=== PATIENT | female | born 1965 | race Caucasian/White ===

== ENCOUNTER 2016-07-17 07:01 | Day surgery (SDC) | payer OTHER ==
[2016-07-16 11:52] VITALS: Ht 160 cm; Wt 60.0 kg
[~2016-07-17] VITALS: Ht 160 cm; Wt 60.0 kg
[2016-07-17] VITALS (9 sets, daily range): BP systolic 119–146; BP diastolic 64–88; PULSE 66–78; RESP 15–18
[~2016-07-17 07:01] MED LIST: HYDR-3498 PO
[2016-07-17] MEDS ORDERED: PROP10TA6 PO (08:27)
[2016-07-17] MEDS ORDERED: CHOL5000 PO (08:27)
[2016-07-17] MEDS ORDERED: NOL20 PO (08:27)
--- NOTE | 2016-07-17 08:36 | RADRPT ---
PROCEDURE: XR Chest. CLINICAL INDICATION: Preoperative TECHNIQUE: Single frontal view of the chest was obtained COMPARISON: 12/05/2015 FINDINGS: The heart and mediastinum are within normal limits. The lungs are clear. There is no pleural effusion or pneumothorax. RPTAT: AA IMPRESSION: No acute disease. .Iban Herrera MD, MD Date Time Electronically viewed and signed by .Iban Herrera MD, on 07/17/2016 08:36 .S/
[2016-07-17 09:12] LABS: BASOPHILS % 0.2 % (0.0-2.0); EOSINOPHILS # 0.1 10^3/ul (0.0-0.5); EOSINOPHILS % 2.4 % (0.0-7.0); HEMATOCRIT 37.7 % (37.0-47.0); HEMOGLOBIN 12.8 g/dl (12.0-16.0); LYMPHOCYTES # 0.5 10^3/ul (0.8-2.9); LYMPHOCYTES % 12.7 % (15.0-51.0); MEAN CORPUSCULAR VOLUME 88.2 fl (82.0-101.0); MONOCYTE # 0.4 10^3/ul (0.3-0.9); MONOCYTES % 9.4 % (0.0-11.0); NEUTROPHIL # 3.2 10^3/ul (1.6-7.5); NEUTROPHILS % 75.3 % (39.0-77.0); PLATELET COUNT 240 10^3/UL (140-440); RED BLOOD COUNT 4.28 10^6/ul (4.20-5.40); RED CELL DISTRIBUTION WIDTH 13.2 % (11.5-14.5); UNCORRECTED WBC 4.2 10^3/ul (4.8-10.8); WHITE BLOOD COUNT 4.2 10^3/ul (4.8-10.8)
[2016-07-17] MEDS ORDERED: LIDOCAINE 2% (SDV) 5 ML INJ ONE (09:13)
[2016-07-17] MEDS ORDERED: FENTAnyl 50 MCG/ML VIAL ONE (09:13)
[2016-07-17] MEDS ORDERED: MIDAZOLAM 1 MG/ML 2 ML INJ ONE (09:13)
[2016-07-17] MEDS ORDERED: PROPOFOL 20 ML ONE (09:13)
[2016-07-17] MEDS ORDERED: CEFAZOLIN 1 GM INJ ONE (09:14)
[2016-07-17] MEDS ORDERED: LIDOCAINE 1%/EPI 30 ML INJ ONE (09:14)
[2016-07-17] MEDS ORDERED: ONDANSETRON 4 MG INJ ONE (09:14)
[2016-07-17] MEDS ORDERED: METOCLOPRAMIDE 10 MG INJ ONE (09:14)
[2016-07-17 09:15] LABS: CONDITION 1
[2016-07-17 09:29] LABS: CALCIUM 9.4 mg/dl (8.4-10.2); CREATININE 0.65 mg/dl (0.44-1.00); POTASSIUM 4.2 mmol/L (3.5-5.1)
[2016-07-17] MEDS ORDERED: MEPERIDINE 25 MG INJ IV PRN (09:30)
[2016-07-17] MEDS ORDERED: PROCHLORPERAZINE 10 MG INJ IV PRN (09:30)
[2016-07-17] MEDS ORDERED: FENTAnyl 50 MCG/ML VIAL IV PRN (09:30)
[2016-07-17] MEDS ORDERED: OXYCODONE/ACETAMINOPHEN (5/325) TAB PO PRN (09:30)
[2016-07-17] MEDS ORDERED: METOCLOPRAMIDE 10 MG INJ IV PRN (09:30)
[2016-07-17] MEDS ORDERED: DIPHENHYDRAMINE 50 MG INJ IV PRN (09:30)
[2016-07-17] MEDS ORDERED: KETOROLAC 15 MG INJ IV ONE (09:30)
[2016-07-17] MEDS ORDERED: ONDANSETRON 4 MG INJ IV PRN (09:30)
[2016-07-17] MEDS ORDERED: LABETALOL HCL 20MG INJ IV PRN (09:30)
[2016-07-17 09:32] LABS: INR 0.93; PROTIME 12.5 Sec (12.2-14.2)
[2016-07-17 09:33] LABS: PARTIAL THROMBOPLASTIN TIME 25.1 Sec (25.0-35.0)
[2016-07-17] MEDS ORDERED: SOD CHLORIDE 0.9% 1,000 ML IV SCH (10:00)
[2016-07-17] MEDS ORDERED: CEFAZOLIN 1 GM/50 ML (PMX) 50 ML IVPB SCH (10:00)
--- NOTE | 2016-07-17 10:24 | OPR ---
DATE OF OPERATION: 07/17/2016 PREOPERATIVE DIAGNOSES: 1. Skin lesion, right cervical area. 2. Skin lesion, right abdomen. 3. Posterior thoracic mass. POSTOPERATIVE DIAGNOSES: 1. Skin lesion, right cervical area. 2. Skin lesion, right abdomen. 3. Posterior thoracic mass. PROCEDURE: 1. Excision of skin lesion, right neck. 2. Excision of skin lesion, right abdomen. 3. Excision of posterior thoracic mass, with local skin flap advancement closure. ANESTHESIA: IV sedation with local. ANESTHESIOLOGIST: Dr. Saldana SURGEON: Dominick Galvin MD CONFIGURATION MANAGEMENT MANAGER: Dr. Collazo INDICATIONS FOR PROCEDURE: The patient is known to me as I had previously treated her for breast c ancer. She presented with benign findings of a skin lesion on her right neck, right abdomen, and a cystic mass on her posterior thorax. She requested excision of all lesions. She consented and was scheduled for surgery. DESCRIPTION OF PROCEDURE: The patient was brought to the operating theater and placed under IV nayeli tion. The skin lesion on the right neck and right abdomen were both prepped and draped in the usual sterile fashion. Attention was first directed to the abdominal lesion. The area was infiltrated with 1% lidocaine lo kun anesthetic with epinephrine. An elliptical excision then took place with a 15 blade scalpel. T he specimen was transected with cautery, removed and sent for permanent pathologic analysis. Minima l bleeding was controlled with cautery and the skin was closed with 5-0 PDS suture in subcuticular f ashion. Attention was then directed to the right neck lesion. The area was infiltrated with 1% lidocaine lo kun anesthetic. It was elevated with a forceps and transected with the scalpel. Minimal bleeding at its base was controlled with cautery. The lesion was sent for permanent pathologic analysis. The patient was then repositioned into the lateral decubitus position, with the right side up. The area of the posterior thoracic cystic mass was prepped and draped in the usual sterile fashion. An elliptical incision took place with a 15 blade scalpel. The specimen was then dissected from the pichardo bcutaneous tissue with cautery. It was removed and sent for pathologic analysis. Due to the size o f the defect, primary closure was not possible; therefore superior and inferior flaps were created. The 2 flaps were rotated together and the skin was closed with 2-0 nylon sutures in vertical mattres s fashion. The patient tolerated the procedures well. Total blood loss was 10 mL. There were no c omplications and the patient was transported in stable condition to the recovery room. Dictated By: DOMINICK WISEMAN/SUSHANT Conf#: [id number] DID#: [id number]
--- NOTE | 2016-07-17 13:35 | RADRPT ---
Vent Rate: 71 bpm RR Interval: 0 msec ID Interval: 154 msec QRS Duration: 82 msec QT Interval: 406 msec QTC Interval: 441 msec P-R-T Sherrill: 67 - 72 - 71 degrees Normal sinus rhythm Low voltage QRS Borderline ECG Electronically Signed By: Lawrence Pena [id number]
== END 2016-07-17 11:30 | disposition home or self-care (01) ==
LOC: SDS 07:01
PROVIDERS: ATTEND Surgery Surgical Oncology
DX: D22.5 Melanocytic nevi of trunk (principal); D22.4 Melanocytic nevi of scalp and neck; L72.0 Epidermal cyst; I10 Essential (primary) hypertension; E78.5 Hyperlipidemia, unspecified
CPT/HCPCS: 11421; 14000; 71010; 80048; 84703; 85025; 85610; 85730; 88304; 88305; 93005; J0690; J2250; J2405; J2765; J3010; Z7512; Z7610

== ENCOUNTER 2017-01-17 20:18 | Emergency (ER) | payer OTHER ==
[~2017-01-17] VITALS: Ht 165.1 cm; Wt 70.5 kg
[~2017-01-17 20:18] MED LIST changes: +CHOL5000 PO; -HYDR-3498 PO; +NOL20 PO; +PROP10TA6 PO
[2017-01-17 20:26] VITALS: Ht 165.1 cm; Wt 70.5 kg
--- NOTE | 2017-01-17 21:05 | ERD ---
ER Documentation Chief Complaint Date/Time DATE: 01/17/17 TIME: 21:00 Chief Complaint cough, SOB x 1 week, no relief with Mucinex HPI 51-year-old female presents here in emergency department for complaints of cough on and off wheezing for one week, patient has been having dry cough, does not cough up any phlegm or blood. Patient has been having runny nose, nasal congestion clear nasal discharge. Patient does not have any fever or chills. Patient denies any chest pain. Patient has history of asthma from before. Patient was the former smoker, she has stopped years ago. ROS All systems reviewed and are negative except as per history of present illness. 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 CHEST: Clear to auscultation bilaterally. There are no rales, wheezes or rhonchi. HEART: Regular rate and rhythm. No murmurs, clicks, rubs or gallops. No S3 or S4. ABDOMEN: Soft, nontender and nondistended. Good bowel sounds. No rebound or guarding. No gross peritonitis. No gross organomegaly or masses. No Jarrett sign or McBurney point tenderness. BACK: No midline or flank tenderness. EXTREMITIES: Equal pulses bilaterally. There is no peripheral clubbing, cyanosis or edema. No focal swelling or erythema. Full range of motion. Grossly neurovascularly intact. NEURO: Alert and oriented. Cranial nerves 2-12 intact. Motor strength in all 4 extremities with 5/5 strength. Sensation grossly intact. Normal speech and gait. SKIN: There is no apparent rash or petechia. The skin is warm and dry. HEMATOLOGIC AND LYMPHATIC: There is no evidence of excessive bruising or lymphedema. No gross cervical, axillary, or inguinal lymphadenopathy. Results 24 hrs Current Medications Medications (Trade) Dose Ordered Sig/Jenna Route PRN Reason Start Time Stop Time Status Last Admin Dose Admin Guaifenesin/ Codeine Phosphate (Robitussin Ac Liquid Cup) 10 ml ONCE ONCE PO 01/17/17 21:30 01/17/17 21:31 DC 01/17/17 22:06 Cough medication as given here in emergency department, verbalized feeling much better afterwards. PROCEDURE: XR Chest. CLINICAL INDICATION: Cough for 1 week. TECHNIQUE: Single frontal view of the chest was obtained COMPARISON: Chest dated 07/17/2016. FINDINGS: The heart and mediastinum are within normal limits. The lungs are clear. There is no pleural effusion or pneumothorax. IMPRESSION: No acute disease. RPTAT: [facility] Physician Fozia Date Time Electronically viewed and signed by Physician Fozia on 01/17/2017 22:22 RS/ CC: CONI LOPEZ [employer] Procedures/MDM Medical Decision Making: Patient symptoms are most likely consistent with acute bronchitis, likely from atypical infection, also patient is high risk since patient is on tamoxifen, will start patient on antibiotic. There is low suspicion for Pneumonia at this time since patients lungs sounds are clear, patient O2 saturation is normal and patient doesnt show any respiratory distress. Patients chest xray doesnt show infiltrates or any other cardiopulmonary emergencies at this time. There is low suspicion for other cardiopulmonary emergencies at this time such as CHF, Pulmonary Embolism, Pneumothorax, Aortic Aneurysm or any other cardiopulmonary emergencies at this time. There is low suspicion for sepsis. Patient appears well and is hemodynamically stable. Fever is controlled with medicines. Disposition: Home. Condition: Stable Prescriptions: Guaifenesin with codeine, Zyrtec, azithromycin, albuterol Instructions: Patient is advised to take medications as prescribed. Patient is advised to rest. Patient advised to increase fluid intake, do humidifier at home and if possible, do salt water gargles. Patient is advised that if symptoms are worse, shortness of breath, uncontrolled fever, stridor, vomiting, worst signs and symptoms to return to emergency department immediately. Otherwise, patient is advised to follow up with primary doctor in 5-7 days. Departure Diagnosis: Primary Impression: Acute bronchitis Bronchitis organism: unspecified organism Qualified Code: J20.9 - Acute bronchitis, unspecified organism Condition: Stable Patient Instructions: Bronchitis With Wheezing (Adult) Additional Instructions: Patient is advised to take medications as prescribed. Patient is advised to rest. Patient advised to increase fluid intake, do humidifier at home and if possible, do salt water gargles. Patient is advised that if symptoms are worse, shortness of breath, uncontrolled fever, stridor, vomiting, worst signs and symptoms to return to emergency department immediately. Otherwise, patient is advised to follow up with primary doctor in 5-7 days. CONI LOPEZ NP Jan 17, 2017 21:05
[2017-01-17] MEDS ORDERED: GUAIFENESIN/CODEINE 5ML CUP PO ONE (21:30)
--- NOTE | 2017-01-17 22:22 | RADRPT ---
PROCEDURE: XR Chest. CLINICAL INDICATION: Cough for 1 week. TECHNIQUE: Single frontal view of the chest was obtained COMPARISON: Chest dated 07/17/2016. FINDINGS: The heart and mediastinum are within normal limits. The lungs are clear. There is no pleural effusion or pneumothorax. IMPRESSION: No acute disease. RPTAT: [facility] Physician Fozia Date Time Electronically viewed and signed by Mi Caraballo Physician on 01/17/2017 22:22 RS/
[2017-01-17] MEDS ORDERED: ALBU8.5H3 INH (22:28)
[2017-01-17] MEDS ORDERED: CETI10CA PO (22:28)
[2017-01-17] MEDS ORDERED: AZIT250T94 PO (22:28)
[2017-01-17] MEDS ORDERED: GUAI473L22 PO (22:28)
[2017-01-17 23:06] VITALS: PULSE 72; RESP 20; TEMP 98.5
== END 2017-01-17 23:08 | disposition home or self-care (01) ==
LOC: FTE 20:18
DX: J20.9 Acute bronchitis, unspecified (principal); Z85.3 Personal history of malignant neoplasm of breast; Z87.891 Personal history of nicotine dependence
CPT/HCPCS: 71010; Z7502; Z7610

== ENCOUNTER 2017-02-28 21:21 | Emergency (ER) | payer OTHER ==
[~2017-02-28] VITALS: Ht 160 cm; Wt 68.5 kg
[~2017-02-28 21:21] MED LIST changes: +ALBU8.5H3 INH; +AZIT250T94 PO; +CETI10CA PO; +GUAI473L22 PO
[2017-02-28 21:24] VITALS: Ht 160 cm; Wt 68.5 kg
[2017-02-28 21:57] LABS: URINE BLOOD (Dip) POC 1+ (NEGATIVE)
[2017-02-28] MEDS ORDERED: ONDANSETRON 4 MG INJ IV STA (22:27)
[2017-02-28] MEDS ORDERED: SOD CHLORIDE 0.9% 1,000 ML IV STA (22:27)
[2017-02-28] MEDS ORDERED: morphine 4 MG/ML VIAL IV STA (22:27)
[2017-02-28] MEDS ORDERED: ENALAPRILAT 1.25 MG INJ IV ONE (22:30)
[2017-02-28 23:24] LABS: BASOPHILS % 0.9 % (0.0-2.0); EOSINOPHILS # 0.1 10^3/ul (0.0-0.5); EOSINOPHILS % 1.9 % (0.0-7.0); HEMATOCRIT 37.8 % (37.0-47.0); HEMOGLOBIN 12.6 g/dl (12.0-16.0); LYMPHOCYTES # 1.3 10^3/ul (0.8-2.9); LYMPHOCYTES % 30.1 % (15.0-51.0); MEAN CORPUSCULAR HEMOGLOBIN 29.5 pg (29.0-33.0); MEAN CORPUSCULAR HGB CONC 33.3 g/dl (32.0-37.0); MEAN CORPUSCULAR VOLUME 88.5 fl (82.0-101.0); MEAN PLATELET VOLUME 9.3 fl (7.4-10.4); MONOCYTE # 0.3 10^3/ul (0.3-0.9); MONOCYTES % 7.5 % (0.0-11.0); NEUTROPHIL # 2.5 10^3/ul (1.6-7.5); NEUTROPHILS % 59.4 % (39.0-77.0); PLATELET COUNT 242 10^3/UL (140-415); RED BLOOD COUNT 4.27 10^6/ul (4.20-5.40); RED CELL DISTRIBUTION WIDTH 12.5 % (11.5-14.5); WHITE BLOOD COUNT 4.3 10^3/ul (4.8-10.8)
[2017-02-28 23:36] LABS: INR 0.96; PROTIME 12.8 Sec (12.2-14.2)
[2017-02-28 23:38] LABS: ADD UMIC YES; UR ASCORBIC ACID NEGATIVE (NEGATIVE); UR BILIRUBIN (Dip) NEGATIVE (NEGATIVE); UR BLOOD (Dip) 1+ mg/dL (NEGATIVE); UR CLARITY CLEAR (CLEAR); UR COLOR YELLOW (YELLOW); UR GLUCOSE (Dip) NEGATIVE (NEGATIVE); UR KETONES (Dip) NEGATIVE (NEGATIVE); UR LEUKOCYTE ESTERASE (Dip) NEGATIVE Leu/ul (NEGATIVE); UR NITRITE (Dip) NEGATIVE (NEGATIVE); UR RBC 1 /HPF (0-5); UR SPECIFIC GRAVITY (Dip) 1.012 (1.003-1.030); UR TOTAL PROTEIN (Dip) NEGATIVE (NEGATIVE); UR UROBILINOGEN (Dip) NEGATIVE (NEGATIVE)
[2017-02-28 23:44] LABS: ALBUMIN 3.9 g/dl (3.3-4.9); ALBUMIN/GLOBULIN RATIO 1.21; BILIRUBIN,INDIRECT 0.1 mg/dl (0-1.1); BILIRUBIN,TOTAL 0.1 mg/dl (0.2-1.3); CALCIUM 9.8 mg/dl (8.4-10.2); CREATININE 0.72 mg/dl (0.44-1.00); POTASSIUM 3.7 mmol/L (3.5-5.1); TOTAL PROTEIN 7.1 g/dl (6.1-8.1)
--- NOTE | 2017-03-01 00:28 | RADRPT ---
PROCEDURE: CT Abdomen and pelvis without contrast. CLINICAL INDICATION: Abdominal pain. TECHNIQUE: CT scan of the abdomen and pelvis was performed on a multi-detector high-resolution CT scanner. Contiguous axial images were obtained from the lung bases to the ischial tuberosities wit hout intravenous contrast. Coronal and sagittal reformatted images were also obtained. Images were reviewed on the PACS workstation. One or more of the following dose reduction techniques were used: - Automated exposure control. - Adjustment of the mA and/or kV according to patient size. - Use of iterative reconstruction technique. Exam CTD/vol = 10.19 mGy. Total exam DLP = 598.27 mGy-cm. COMPARISON: None. FINDINGS: Evaluation of the lung bases demonstrates minimal bibasilar atelectasis. There is skin thickening an d induration overlying bilateral breasts. Abdomen: The liver is normal in size. There is no focal mass or dilatation of the biliary tree. T he gallbladder is not distended. The spleen, pancreas and bilateral adrenal glands are within jessy l limits. Bilateral kidneys are normal in size with a cyst within the lower pole of the right kidne y. There is no radiopaque renal or ureteral calculus identified. There is no hydronephrosis or hyd roureter. There is no retroperitoneal adenopathy. The abdominal aorta is of normal caliber. There is moderate retained stool within the right and transverse colon. There is no bowel obstructi on or free air. A normal appendix is identified. There is no diverticulosis or diverticulitis. Th ere is no ascites. Pelvis: The bladder is unremarkable. The uterus and adnexa are within normal limits. There is no significant pelvic adenopathy or free fluid. Evaluation of the osseous structures demonstrates no suspicious lytic or blastic lesion. IMPRESSION: No acute abnormality identified within the abdomen and pelvis. Moderate retained stool within the colon. Right renal cyst. Skin thickening and induration overlying bilateral breasts. Clinically correlate. .Jacob Cota MD, MD Date Time Electronically viewed and signed by .Jacob Cota MD, MD on 03/01/2017 00:28 .T/
[2017-03-01] MEDS ORDERED: OXYC-279 PO (00:31)
--- NOTE | 2017-03-01 00:32 | ERD ---
ER Documentation Chief Complaint Date/Time DATE: 03/01/17 TIME: 00:32 Chief Complaint pelvic pain x 3 weeks ago on tamoxifen HPI 51-year-old woman complains of suprapubic abdominal pain intermittently 2-3 weeks. She states over this time period she has been diagnosed with urinary tract infection and she is on her second round of antibiotics. She states she also obtained gynecology consultation as an outpatient and is currently being managed by her compensation and benefits manager. She denies recent vaginal discharge, no weight loss, no fevers or chills, no vomiting or diarrhea. Patient denies back pain, chest pain, or shortness of breath. Patient denies vaginal erythema or itching. ROS All systems reviewed and are negative except as per history of present illness. Medications Home Meds Active Scripts Oxycodone HCl/Acetaminophen (Percocet 5-325 mg Tablet) 1 Each Tablet, 1 EACH PO TID for PAIN, #12 TAB Prov:ALLY WAGNER MD 03/01/17 Azithromycin* (Zithromax*) 250 Mg Tablet, 250 MG PO .NicolePACK DIRECTED, #6 TAB TAKE 500 MG (2 TABS) THE FIRST DAY THEN 250 MG (1 TAB) DAYS 2-5 Prov:CONI LOPEZ NP 01/17/17 Albuterol Sulfate* (Proair HFA*) 8.5 Gm Hfa.aer.ad, 2 PUFF INH Q4H Y for WHEEZING AND SOB, #1 INHALER Prov:CONI LOPEZ NP 01/17/17 Cetirizine Hcl* (Zyrtec*) 10 Mg Capsule, 10 MG PO DAILY, #30 TAB.CHEW Prov:CONI LOPEZ NP 01/17/17 Guaifenesin-Codeine Phosphate* (Guaifenesin* AC Cough Syrup) 473 Ml Liquid, 10 ML PO Q4H Y for COUGH, #60 ML Prov:CONI LOPEZ NP 01/17/17 Reported Medications Cholecalciferol (D3-5) 5,000 Unit Capsule, 40192 UNIT PO, CAP 07/17/16 Propranolol Hcl* (Propranolol Hcl*) 10 Mg Tablet, 10 MG PO TID, TAB 07/17/16 Tamoxifen Citrate* (Tamoxifen Citrate*) 20 Mg Tab, 20 MG PO DAILY, TAB 07/17/16 Allergies Allergies: Coded Allergies: No Known Allergy (Unverified , 07/17/16) PMhx/Soc History of bilateral breast carcinoma status post radiation therapy and current tamoxifen use, recent urinary tract infection treated with antibiotics, hypertension History of Surgery: Yes (lymph node disection) Anesthesia Reaction: No Hx Neurological Disorder: No Hx Respiratory Disorders: Yes Hx Cardiac Disorders: Yes Hx Psychiatric Problems: No Hx 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) Hx Alcohol Use: No Hx Substance Use: No Hx Tobacco Use: Yes (quit 5 months ago) Smoking Status: Never smoker FmHx Family History: No diabetes Physical Exam Vitals Vital Signs Date Time Temp Pulse Resp B/P Pulse Ox O2 Delivery O2 Flow Rate FiO2 03/01/17 00:43 74 122/74 02/28/17 23:05 164/74 02/28/17 21:57 173/118 02/28/17 21:24 97.4 97 20 222/139 98 Physical Exam GENERAL: Well-developed, well-nourished, well-hydrated, in no apparent distress , looks nontoxic in appearance HEENT: Moist mucous membranes, pink conjunctiva, no cervical spine tenderness or step-off deformities, no goiter, no jaundice or icterus, extraocular movements intact without pain. No submandibular induration, and no pharyngeal erythema NEURO: Alert and oriented 3, cranial nerves II through XII intact bilaterally, pupils equal round reactive to light, no focal deficits or facial asymmetry, sensation intact distally Strength 5/5 in upper and lower extremities bilaterally CARDIAC: Regular rate and rhythm, no murmurs rubs or gallops LUNGS: Clear bilaterally no wheezing crackles or stridor ABDOMEN: Soft nontender, no guarding, no rigidity, no rebound, no psoas sign no obturator sign. Normoactive bowel sounds SKIN: Warm and dry to touch, no abrasions, contusions, or hematomas, no lacerations, no ecchymosis, no target lesions, and without ulcers EXTREMITIES: No clubbing cyanosis or edema, calves are bilaterally symmetrical, no Homans sign, no popliteal cord sign. Distal pulses equal and bilateral PSYCH: Normal affect without agitation or irritability Result Diagram: 02/28/17 2302 02/28/17 2302 Results 24 hrs Laboratory Tests Test 02/28/17 21:50 02/28/17 22:05 02/28/17 23:02 Urine Color YELLOW Urine Clarity CLEAR Urine pH 5.0 Urine Specific [place] 1.012 Urine Ketones NEGATIVEmg/dL Urine Nitrite NEGATIVEmg/dL Urine Bilirubin NEGATIVEmg/dL Urine Urobilinogen NEGATIVEmg/dL Urine Leukocyte Esterase NEGATIVELeu/ul Urine Microscopic RBC 1/HPF Urine Microscopic WBC 0/HPF Urine Hemoglobin 1+mg/dL Urine Glucose NEGATIVEmg/dL Urine Total Protein NEGATIVEmg/dl Bedside Urine pH (LAB) 5.5 Bedside Urine Protein (LAB) Negative Bedside Urine Glucose (UA) Negative Bedside Urine Ketones (LAB) Negative Bedside Urine Blood 1+ Bedside Urine Nitrite (LAB) Negative Bedside Urine Leukocyte Esterase (L Negative White Blood Count 4.310^3/ul Red Blood Count 4.2710^6/ul Hemoglobin 12.6g/dl Hematocrit 37.8% Mean Corpuscular Volume 88.5fl Mean Corpuscular Hemoglobin 29.5pg Mean Corpuscular Hemoglobin Concent 33.3g/dl Red Cell Distribution Width 12.5% Platelet Count 83286^3/UL Mean Platelet Volume 9.3fl Neutrophils % 59.4% Lymphocytes % 30.1% Monocytes % 7.5% Eosinophils % 1.9% Basophils % 0.9% Nucleated Red Blood Cells % 0.0/100WBC Neutrophils # 2.510^3/ul Lymphocytes # 1.310^3/ul Monocytes # 0.310^3/ul Eosinophils # 0.110^3/ul Basophils # 0.010^3/ul Nucleated Red Blood Cells # 0.010^3/ul Prothrombin Time 12.8Sec Prothrombin Time Ratio 1.0 INR International Normalized Ratio 0.96 Sodium Level 138mmol/L Potassium Level 3.7mmol/L Chloride Level 105mmol/L Carbon Dioxide Level 26mmol/L Anion Gap 11 Blood Urea Nitrogen 14mg/dl Creatinine 0.72mg/dl Glucose Level 96mg/dl Calcium Level 9.8mg/dl Total Bilirubin 0.1mg/dl Direct Bilirubin 0.00mg/dl Indirect Bilirubin 0.1mg/dl Aspartate Amino Transf (AST/SGOT) 30IU/L Alanine Aminotransferase (ALT/SGPT) 31IU/L Alkaline Phosphatase 79IU/L Total Protein 7.1g/dl Albumin 3.9g/dl Globulin 3.20g/dl Albumin/Globulin Ratio 1.21 Lipase 637U/L Current Medications Medications (Trade) Dose Ordered Sig/Jenna Route PRN Reason Start Time Stop Time Status Last Admin Dose Admin Sodium Chloride (NS) 1,000 ml @ 1,000 mls/hr Q1H STAT IV 02/28/17 22:27 02/28/17 23:26 DC 02/28/17 22:55 Morphine Sulfate (morphine) 4 mg ONCE STAT IV 02/28/17 22:27 02/28/17 22:29 DC 02/28/17 22:55 Ondansetron HCl (Zofran Inj) 4 mg ONCE STAT IV 02/28/17 22:27 02/28/17 22:29 DC 02/28/17 22:55 Enalaprilat (Vasotec Iv) 1.25 mg ONCE ONCE IV 02/28/17 22:30 02/28/17 22:31 DC 02/28/17 22:55 Procedures/MDM IV line was established patient was placed on school lunch monitor rhythm strip revealed a sinus rhythm at about 80 bpm with upright P and T waves. Patient was afebrile. Patient was initially hypertensive and received enalapril 1.25 mg IV 1, she also received 1 L normal saline intravenously, morphine 4 mg IV, Zofran 4 mg IV with resolution of pain. CT scan of the abdomen and pelvis was performed that was unremarkable. Please refer to radiologist dictation for full report. CBC and electrolytes are normal, liver function tests were normal, urine analysis was negative for infection. I informed the patient to continue her antibiotics until her regimen is complete. Differential diagnoses considered, included but not limited to new carcinoma, tubo-ovarian abscess, pelvic inflammatory disease, aortic dissection, abdominal aortic aneurysm, sepsis, stroke, meningitis, encephalitis, pneumonia, appendicitis, cholecystitis, bowel obstruction, pyelonephritis, nephrolithiasis , cystitis, as well as metabolic, hematologic, and electrolyte abnormalities. As well as abscess, cellulitis, fractures, and dislocations. Patient feels much better at this time, and vital signs are normal, symptoms have improved. I did give strict instructions to return to the ED if symptoms continue or worsen, patient will otherwise follow-up with primary care physician. Patient understood instructions and agreed to plan. Disclaimer: Inadvertent spelling and grammatical errors are likely due to EHR/ dictation software use and do not reflect on the overall quality of patient care. Also, please note that the electronic time recorded on this note does not necessarily reflect the actual time of the patient encounter. Departure Diagnosis: Primary Impression: Hypertension Hypertension type: essential hypertension Qualified Code: I10 - Essential hypertension Additional Impressions: UTI (urinary tract infection) Urinary tract infection type: acute cystitis Hematuria presence: without hematuria Qualified Code: N30.00 - Acute cystitis without hematuria Pelvic pain Condition: Good Patient Instructions: High Blood Pressure (Hypertension) Referrals: [facility] (PCP) ALLY WAGNER MD Mar 01, 2017 00:32
[2017-03-01 00:43] VITALS: BP 122/74; PULSE 74
== END 2017-03-01 00:58 | disposition home or self-care (01) ==
LOC: E/R 21:21
DX: I10 Essential (primary) hypertension (principal); N30.00 Acute cystitis without hematuria; Z85.3 Personal history of malignant neoplasm of breast; Z87.891 Personal history of nicotine dependence
CPT/HCPCS: 36415; 74176; 80053; 81001; 83690; 85025; 85610; 87086; 96374; 96375; J2270; J2405; J7030; Z7502; Z7610; 81003

== ENCOUNTER 2017-03-19 10:16 | Emergency (ER) | payer OTHER ==
[~2017-03-19] VITALS: Ht 157.5 cm; Wt 68.0 kg
[~2017-03-19 10:16] MED LIST changes: +OXYC-279 PO
[2017-03-19 10:20] VITALS: Ht 157.5 cm; Wt 68.0 kg
[2017-03-19] MEDS ORDERED: ONDANSETRON 4 MG INJ IV STA (10:47)
[2017-03-19] MEDS ORDERED: morphine 4 MG/ML VIAL IV STA (10:47)
[2017-03-19] MEDS ORDERED: LABETALOL HCL 20MG INJ IV ONE (11:00)
--- NOTE | 2017-03-19 11:31 | RADRPT ---
PROCEDURE: XR Chest. CLINICAL INDICATION: Abdominal pain. TECHNIQUE: Single frontal view. COMPARISON: 01/17/2017. FINDINGS: The lungs are clear. The heart size is normal. There is no pleural effusion. There is no pneumothorax. IMPRESSION: 1. Normal chest radiograph. 2. No change from 01/17/2017. RPTAT: QQ .Wali King MD, MD Date Time Electronically viewed and signed by .Wali King MD, MD on 03/19/2017 11:31 .R/
[2017-03-19] MEDS ORDERED: PROP20TA4 PO (11:50)
[2017-03-19] MEDS ORDERED: CLON-379 PO (11:52)
[2017-03-19] MEDS ORDERED: AMLO1CAP10 PO (11:53)
[2017-03-19] MEDS ORDERED: CALC600T24 PO (11:54)
[2017-03-19] MEDS ORDERED: ERGO500037 PO (11:54)
[2017-03-19 13:26] LABS: BASOPHILS % 0.5 % (0.0-2.0); EOSINOPHILS % 0.9 % (0.0-7.0); HEMATOCRIT 40.3 % (37.0-47.0); HEMOGLOBIN 13.2 g/dl (12.0-16.0); LYMPHOCYTES # 0.7 10^3/ul (0.8-2.9); LYMPHOCYTES % 16.1 % (15.0-51.0); MEAN CORPUSCULAR HEMOGLOBIN 29.4 pg (29.0-33.0); MEAN CORPUSCULAR HGB CONC 32.8 g/dl (32.0-37.0); MEAN CORPUSCULAR VOLUME 89.8 fl (82.0-101.0); MEAN PLATELET VOLUME 9.6 fl (7.4-10.4); MONOCYTE # 0.2 10^3/ul (0.3-0.9); MONOCYTES % 5.7 % (0.0-11.0); NEUTROPHIL # 3.2 10^3/ul (1.6-7.5); NEUTROPHILS % 76.6 % (39.0-77.0); PLATELET COUNT 212 10^3/UL (140-415); RED BLOOD COUNT 4.49 10^6/ul (4.20-5.40); RED CELL DISTRIBUTION WIDTH 12.3 % (11.5-14.5); WHITE BLOOD COUNT 4.2 10^3/ul (4.8-10.8)
[2017-03-19 13:33] LABS: ALANINE AMINOTRANSFERASE 28 IU/L (13-69); ALBUMIN/GLOBULIN RATIO 1.21; ALKALINE PHOSPHATASE 77 IU/L (42-121); ANION GAP 12 (8-16); ASPARTATE AMINO TRANSFERASE 28 IU/L (15-46); BILIRUBIN,INDIRECT 0.3 mg/dl (0-1.1); BILIRUBIN,TOTAL 0.3 mg/dl (0.2-1.3); BLOOD UREA NITROGEN 11 mg/dl (7-20); CALCIUM 9.7 mg/dl (8.4-10.2); CARBON DIOXIDE 26 mmol/L (21-31); CHLORIDE 107 mmol/L (97-110); CREATININE 0.65 mg/dl (0.44-1.00); GLUCOSE 100 mg/dl (70-220); POTASSIUM 3.9 mmol/L (3.5-5.1); SODIUM 141 mmol/L (135-144); TOTAL PROTEIN 7.3 g/dl (6.1-8.1)
[2017-03-19 13:38] LABS: INR 0.93; PROTIME 12.5 Sec (12.2-14.2)
[2017-03-19 13:39] LABS: PARTIAL THROMBOPLASTIN TIME 24.4 Sec (25.0-35.0)
[2017-03-19 13:49] LABS: TROPONIN-I < 0.012 ng/ml (0.00-0.12)
--- NOTE | 2017-03-19 13:59 | ERD ---
ER Documentation Chief Complaint Chief Complaint Sent from MD for eval abdominal pain HPI Patient is a 51-year-old female with hypertension and breast cancer presents with high blood pressure. She also had abdominal pain 2 weeks ago. She found that that she had high blood pressure recently and has been on blood pressure medicines for the past 2.5 weeks. She went to Dr. Wright from cardiology who gave her propranolol, clonidine, amlodipine, and benazepril. This morning she felt dizzy and had pain between her shoulder blades. She does not currently have a primary doctor just Dr. Wright. ROS All systems reviewed and are negative except as per history of present illness. Medications Home Meds Reported Medications Calcium Carbonate* (Calcium Carbonate*) 600 MG Ca Tab, 1200 MG PO DAILY, TAB 03/19/17 Ergocalciferol (Vitamin D2) (VITAMIN D2) 50,000 Unit Capsule, 43447 UNIT PO EVERY WEDNESDAY, CAP 03/19/17 Amlodipine Besylate/Benazepril (Amlodipine-Benazepril 5-20 mg) 1 Each Capsule, 1 EACH PO DAILY, CAP 03/19/17 Clonidine Hcl* (Clonidine Hcl*) 0.1 Mg Tab, 0.1 MG PO DAILY Y for ELEVATED BLOOD PRESSURE, TAB 03/19/17 Propranolol Hcl* (Propranolol Hcl*) 20 Mg Tablet, 20 MG PO BID, TAB 03/19/17 Tamoxifen Citrate* (Tamoxifen Citrate*) 20 Mg Tab, 20 MG PO DAILY, TAB 07/17/16 Discontinued Reported Medications Cholecalciferol (D3-5) 5,000 Unit Capsule, 98953 UNIT PO, CAP 07/17/16 Propranolol Hcl* (Propranolol Hcl*) 10 Mg Tablet, 10 MG PO TID, TAB 07/17/16 Discontinued Scripts Oxycodone HCl/Acetaminophen (Percocet 5-325 mg Tablet) 1 Each Tablet, 1 EACH PO TID for PAIN, #12 TAB Prov:ALLY WAGNER MD 03/01/17 Azithromycin* (Zithromax*) 250 Mg Tablet, 250 MG PO .LUISANA DIRECTED, #6 TAB TAKE 500 MG (2 TABS) THE FIRST DAY THEN 250 MG (1 TAB) DAYS 2-5 Prov:CONI LOPEZ NP 01/17/17 Albuterol Sulfate* (Proair HFA*) 8.5 Gm Hfa.aer.ad, 2 PUFF INH Q4H Y for WHEEZING AND SOB, #1 INHALER Prov:CONI LOPEZ NP 01/17/17 Cetirizine Hcl* (Zyrtec*) 10 Mg Capsule, 10 MG PO DAILY, #30 TAB.CHEW Prov:CONI LOPEZ NP 01/17/17 Guaifenesin-Codeine Phosphate* (Guaifenesin* AC Cough Syrup) 473 Ml Liquid, 10 ML PO Q4H Y for COUGH, #60 ML Prov:CONI LOPEZ NP 01/17/17 Allergies Allergies: Coded Allergies: No Known Allergy (Unverified , 03/19/17) PMhx/Soc History of Surgery: Yes (BILATERAL BREAST) Anesthesia Reaction: No Hx Neurological Disorder: No Hx Respiratory Disorders: No Hx Cardiac Disorders: Yes (HTN, ARRYTHMIAS) Hx Psychiatric Problems: No Hx Miscellaneous Medical Probl: Yes (BILATERAL BREAST CA) Hx Alcohol Use: No Hx Substance Use: No Hx Tobacco Use: Yes (QUIT 18 MONTHS AGO) Smoking Status: Former smoker FmHx Family History: diabetes Physical Exam Vitals Vital Signs Date Time Temp Pulse Resp B/P Pulse Ox O2 Delivery O2 Flow Rate FiO2 03/19/17 12:45 97.7 68 12 142/93 100 Room Air 03/19/17 11:00 105 220/123 03/19/17 10:20 97.7 75 20 217/122 100 Physical Exam Const: No acute distress Head: Atraumatic Eyes: Normal Conjunctiva ENT: Normal External Ears, Nose and Mouth. Neck: Full range of motion..~ No meningismus. Resp: Clear to auscultation bilaterally Cardio: Regular rate and rhythm, no murmurs Abd: Soft, non tender, non distended. Normal bowel sounds Skin: No petechiae or rashes Back: No midline or flank tenderness Ext: No cyanosis, or edema Neur: Awake and alert Psych: Normal Mood and Affect Result Diagram: 03/19/17 1305 03/19/17 1305 Results 24 hrs Laboratory Tests Test 03/19/17 13:05 White Blood Count 4.210^3/ul Red Blood Count 4.4910^6/ul Hemoglobin 13.2g/dl Hematocrit 40.3% Mean Corpuscular Volume 89.8fl Mean Corpuscular Hemoglobin 29.4pg Mean Corpuscular Hemoglobin Concent 32.8g/dl Red Cell Distribution Width 12.3% Platelet Count 87686^3/UL Mean Platelet Volume 9.6fl Neutrophils % 76.6% Lymphocytes % 16.1% Monocytes % 5.7% Eosinophils % 0.9% Basophils % 0.5% Nucleated Red Blood Cells % 0.0/100WBC Neutrophils # 3.210^3/ul Lymphocytes # 0.710^3/ul Monocytes # 0.210^3/ul Eosinophils # 0.010^3/ul Basophils # 0.010^3/ul Nucleated Red Blood Cells # 0.010^3/ul Prothrombin Time 12.5Sec Prothrombin Time Ratio 1.0 INR International Normalized Ratio 0.93 Activated Partial Thromboplast Time 24.4Sec Sodium Level 141mmol/L Potassium Level 3.9mmol/L Chloride Level 107mmol/L Carbon Dioxide Level 26mmol/L Anion Gap 12 Blood Urea Nitrogen 11mg/dl Creatinine 0.65mg/dl Glucose Level 100mg/dl Calcium Level 9.7mg/dl Total Bilirubin 0.3mg/dl Direct Bilirubin 0.00mg/dl Indirect Bilirubin 0.3mg/dl Aspartate Amino Transf (AST/SGOT) 28IU/L Alanine Aminotransferase (ALT/SGPT) 28IU/L Alkaline Phosphatase 77IU/L Troponin I < 0.012ng/ml Total Protein 7.3g/dl Albumin 4.0g/dl Globulin 3.30g/dl Albumin/Globulin Ratio 1.21 Lipase 90U/L Current Medications Medications (Trade) Dose Ordered Sig/Jenna Route PRN Reason Start Time Stop Time Status Last Admin Dose Admin Morphine Sulfate (morphine) 4 mg ONCE STAT IV 03/19/17 10:47 03/19/17 10:48 DC Ondansetron HCl (Zofran Inj) 4 mg ONCE STAT IV 03/19/17 10:47 03/19/17 10:48 DC Labetalol HCl (Labetalol) 20 mg ONCE ONCE IV 03/19/17 11:00 03/19/17 11:01 DC 03/19/17 11:30 Procedures/MDM Ultrasound of the renal arteries shows no renal artery stenosis per radiology. Chest x-ray is negative per radiology. EKG read by me: Rate/Rhythm: Regular rate and rhythm at a rate of 70 Intervals: Normal Impression: No evidence of ischemia or arrhythmia Patient is a 51-year-old female with hypertension who presents with hypertension. She was given labetalol IV which has improved her blood pressure. The patient has normal laboratory studies. Chest x-ray is negative and EKG shows no signs of ischemia. Her renal artery ultrasound shows no signs of renal artery stenosis. At this point I believe outpatient management is appropriate. She will need to continue to take her blood pressure medicines as directed but will need to follow-up with her doctor for repeat evaluation and blood pressure check to see if her blood pressure medications need to be changed or increased. She can return for any worsening symptoms. I do not believe she requires admission the hospital at this time. I doubt hypertensive emergency. I doubt acute coronary syndrome or renal artery stenosis. I doubt stroke. Critical Care: Time: 35 minutes excluding all billable procedures. Treatments/Evaluations: Close monitoring and treatment of unstable vital signs, cardiorespiratory, and neurologic status, while maintaining tight balance of fluid, respiratory, and cardiac interventions. Departure Diagnosis: Primary Impression: Hypertension Hypertension type: essential hypertension Qualified Code: I10 - Essential hypertension Condition: Fair Patient Instructions: High Blood Pressure (Hypertension) Referrals: [facility] (PCP) GRECIA WRIGHT MD Additional Instructions: Call your primary care doctor TOMORROW for an appointment during the next 1-2 days.See the doctor sooner or return here if your condition worsens before your appointment time. MARIS GILLIAM MD Mar 19, 2017 13:59
[2017-03-19 14:03] VITALS: BP 113/68; PULSE 67; RESP 22; TEMP 97.7
--- NOTE | 2017-03-19 18:15 | RADRPT ---
PROCEDURE: US Renal arteries. CLINICAL INDICATION: Hypertension. TECHNIQUE: Renal artery Doppler ultrasound was performed with cameron scale, color flow, and Doppler interrogation of the renal arteries and kidneys. COMPARISON: None available FINDINGS: The right kidney measures 10.8 cm. The left kidney measures 9.9 cm. There is no solid renal mass, hy dronephrosis, or calculus. There is a benign cyst in the lower right kidney measuring 2.6 x 3.5 x 3. 3 cm. Renal echogenicity is normal. LOCATIONRIGHT (cm/sec)LEFT (cm/sec) Aorta PSV68 Prox main renal artery [id number] 41 Resistive Index0.74 0.55 Mid main renal artery PSV73 71 Resistive Index0.61 0.63 Dist main renal artery [id number] 69 Resistive Index0.64 0.63 Renal veinpatent patent Superior segmental artery PSV37 62 Resistive Index0.64 0.62 Mid segmental artery PSV55 54 Resistive Index0.72 0.59 Lower segmental artery PSV50 39 Resistive Index0.68 0.62 Renal Artery-Aorta Ratio1.5 1.0 IMPRESSION: 1. Unremarkable renal artery Doppler ultrasound. 2. No evidence for renal artery stenosis. 3. Benign cyst in the lower right kidney measuring 3.5 cm in maximal dimension. RPTAT: QQ .Wali King MD, Date Time Electronically viewed and signed by .Wali King MD, MD on 03/19/2017 18:15 .R/
== END 2017-03-19 14:12 | disposition home or self-care (01) ==
LOC: E/R 10:16
DX: I10 Essential (primary) hypertension (principal); R07.9 Chest pain, unspecified; Z85.3 Personal history of malignant neoplasm of breast; Z87.891 Personal history of nicotine dependence
CPT/HCPCS: 71010; 80053; 83690; 84484; 85025; 85610; 85730; 93005; 93976; 96374; Z7502; Z7610; J2270; J2405

== ENCOUNTER 2017-03-20 23:24 | Emergency (ER) | payer SELFPAY ==
[~2017-03-20] VITALS: Ht 172.7 cm; Wt 89.0 kg
[~2017-03-20 23:24] MED LIST changes: -ALBU8.5H3 INH; +AMLO1CAP10 PO; -AZIT250T94 PO; +CALC600T24 PO; -CETI10CA PO; -CHOL5000 PO; +CLON-379 PO; +ERGO500037 PO; -GUAI473L22 PO; -OXYC-279 PO; -PROP10TA6 PO; +PROP20TA4 PO
[2017-03-20 23:30] VITALS: Ht 172.7 cm; Wt 89.0 kg
== END 2017-03-21 00:15 | disposition left against medical advice (07) ==
LOC: E/R 23:24
DX: Z53.21 Procedure and treatment not carried out due to patient leaving prior to being seen by health care provider (principal)